=== PATIENT | male | born 1960 | race Caucasian/White ===

== ENCOUNTER 2022-11-05 08:27 | Outpatient (CLI) | payer BC ==
[2022-11-05] MEDS ORDERED: Magnevist 469MG/ML 20 ML VIAL ONE (13:23)
== END 2022-11-05 08:28 | disposition home or self-care (01) ==
LOC: TBSIIMAG 08:27
PROVIDERS: ATTEND Urology
DX: C61 Malignant neoplasm of prostate (principal)
CPT/HCPCS: 72197; A9579